=== PATIENT | female | born 1940 | race Caucasian/White ===

== ENCOUNTER 2019-03-26 07:15 | Day surgery (SDC) | payer MEDICARE, OTHER ==
[~2019-03-26] VITALS: Ht 165.1 cm; Wt 87.5 kg
== END 2019-03-26 09:45 | disposition home or self-care (01) ==
LOC: DS 07:15 → OPS 07:15
PROC: 0DBN8ZZ Excision of Sigmoid Colon, Via Natural or Artificial Opening Endoscopic (ICD-10-PCS; principal; 2019-03-26)
DX: K63.5 Polyp of colon (principal); K64.2 Third degree hemorrhoids; D64.9 Anemia, unspecified; K63.89 Other specified diseases of intestine; K59.00 Constipation, unspecified; I10 Essential (primary) hypertension; Z88.5 Allergy status to narcotic agent; Z86.711 Personal history of pulmonary embolism; Z98.890 Other specified postprocedural states; Z90.711 Acquired absence of uterus with remaining cervical stump
CPT/HCPCS: 99153; G0500; J0690; J2250; J3010; J7121